=== PATIENT | female | born 1955 | race Caucasian/White ===

== ENCOUNTER → 2016-04-15 | Outpatient (CLI) | payer OTHER ==
--- NOTE | 2016-04-15 14:02 | US ---
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 Comparison: Two cystic lesions identified on outside ultrasound not available for direct comparison. Technique: Transabdominal and endovaginal ultrasound images were obtained. Findings: Prior hysterectomy with uterus surgically absent. Ovaries not identified. There is a linear tubular structure extending to the bladder, likely representing prominent urethra o r ectasia of the urethra without associated bladder diverticulum or focal urethral diverticulum. Posterior to the vagina, there is a separate complex cystic fluid collection measuring 2.9 x 2.7 x 1. 8 cm, which does not change in size in the transabdominal or endovaginal images or with compression. This is not associated with the urethra or bladder. Impression: 1. Complex cystic lesion 2.9 x 2.7 x 2.8 cm posterior to the vagina, which may represent vaginal cyst , GI duplication cyst, postsurgical seroma or lymphoma, among other etiologies. No evidence of associ ation with the bladder or urethra. 2. Linear ectasia of the urethra to the level of the bladder, which is nonspecific, but not associate d with a diverticulum. 3. Recommend MRI of the pelvis without and with contrast for further characterization of the posterio r vagina complex cyst and to exclude ovarian pathology. Cosigned: Dr. Guilherme Vasquez Findings and recommendations have been discussed with the patient who agrees with the plan.
== END ==
LOC: CIMAGING 07:47
PROVIDERS: ATTEND Obstetrics & Gynecology
DX: R93.49 Abnormal radiologic findings on diagnostic imaging of other urinary organs (principal); N36.8 Other specified disorders of urethra
CPT/HCPCS: 76856-PO

== ENCOUNTER → 2016-06-03 | Outpatient (CLI) | payer OTHER | LOC: CIMAGING 07:56 | DX: Z12.31 Encounter for screening mammogram for malignant neoplasm of breast (principal) | CPT/HCPCS: G0202 ==

== ENCOUNTER → 2018-06-09 | Outpatient (CLI) | payer OTHER | LOC: CIMAGING 07:12 | PROVIDERS: ATTEND Family Medicine | DX: Z12.31 Encounter for screening mammogram for malignant neoplasm of breast (principal) ==